=== PATIENT | female | born 1995 | race Caucasian/White ===

== ENCOUNTER → 2016-04-10 | Outpatient (REF) | payer BC, MEDICAID ==
[~2016-04-10] MED LIST: IBUP60TA PO; PERC5TAB6 PO; PERCOCET PO; PRENTAB13 PO; VITAPRTA PO
== END ==
LOC: M LAB REF 17:06
PROVIDERS: ATTEND Advanced Practice Midwife
DX: Z34.82 Encounter for supervision of other normal pregnancy, second trimester (principal)

== ENCOUNTER → 2016-05-08 | Outpatient (CLI) | payer BC ==
--- NOTE | 2016-05-09 04:20 | REP ---
Clinical: Anatomical evaluation. Comparison: None . Findings: Examination demonstrates a single live intrauterine in cephalic presentation. motion is identified by technologist. Placenta is noted anteriorly and grade zero without evidence for placenta previa or abruption. Amniotic fluid volume is normal. Cervix measures 3.4 cm in length and appears closed. No evidence for nuchal cord. Gestational age by LMP 19 weeks 5 days with TANIYA 09/27/2016 . Gestational age by current measurements 19 weeks 3 days with TANIYA 09/29/2016 . FHR equals 141 beats per minute. BPD 4.6 cm 19 weeks 5 days HC 16.7 cm 19 weeks 3 days AC 13.6 cm 19 weeks 0 days FL 3.2 cm 19 weeks 6 days HL 3.0 cm 19 week 6 days HC/AC ratio 1.23 Estimated weight 292 grams ( 37th percentile). Anatomical assessment demonstrates normal structures including cranium, choroid plexus, cavum, cerebellum/posterior fossa, facial profile, lungs, diaphragm, stomach, cord insertion, bladder, and extremities. Limited evaluation of the facial features, heart/ventricular outflow tracts, three-vessel cord, kidneys, and spine noted. Impression: Single live intrauterine demonstrating appropriate interval growth. Anatomical limitations as described above. No gross abnormality identified. Signed by Steven Salinas MD 05/09/2016 04:12 A
== END ==
LOC: M SMT 14:48
PROVIDERS: ATTEND Advanced Practice Midwife
DX: Z34.82 Encounter for supervision of other normal pregnancy, second trimester (principal)

== ENCOUNTER → 2016-07-31 | Outpatient (CLI) | payer BC, MEDICAID ==
--- NOTE | 2016-08-01 06:01 | REP ---
Clinical: Anatomical evaluation. Comparison: 05/08/2016 . Findings: Examination demonstrates a single live intrauterine in breech presentation. motion is identified by technologist. Placenta is noted anteriorly and grade zero without evidence for placenta previa or abruption. Amniotic fluid volume is normal. Cervix measures 5.6 cm in length and appears closed. No evidence for nuchal cord. Gestational age by LMP 31 weeks 5 days with TANIYA 09/27/1968 . Gestational age by current measurements 31 weeks 3 days with TANIYA 09/29/2016 . FHR equals 144 beats per minute. Amniotic fluid index equals 8.5 cm (lower limits of normal). Estimated weight 1720 grams ( 33rd percentile). Anatomical assessment again demonstrates limited evaluation of the facial features, heart/ventricular outflow tracts, and spine. Mild right renal pelviectasis noted. Impression: Single live intrauterine in breech presentation demonstrating appropriate interval growth. Continued limited evaluation of the facial features, heart/ atrial outflow tracts, and spine noted along with mild right renal pelviectasis. Signed by Steven Salinas MD 08/01/2016 05:53 A
== END ==
LOC: M SMT 14:35
PROVIDERS: ATTEND Advanced Practice Midwife
DX: Z34.82 Encounter for supervision of other normal pregnancy, second trimester (principal)

== ENCOUNTER → 2016-08-08 | Outpatient (CLI) | payer BC, MEDICAID | LOC: M LAB 09:54 | PROVIDERS: ATTEND Advanced Practice Midwife | DX: Z34.82 Encounter for supervision of other normal pregnancy, second trimester (principal); Z53.9 Procedure and treatment not carried out, unspecified reason ==

== ENCOUNTER 2016-08-13 14:25 | Outpatient (CLI) | payer BC, MEDICAID ==
[~2016-08-13] VITALS: Ht 162.6 cm; Wt 111.0 kg
[2016-08-13 14:36] VITALS: BP 132/74
[2016-08-13 16:08] VITALS: BP 118/56
[2016-08-13 17:13] VITALS: BP 131/66
[2016-08-13] MEDS ORDERED: BETAMETHASONE SOLUSPAN 6MG/ML INJ 5ML (J0702) IM SCH (19:00)
--- NOTE | 2016-08-13 23:16 | HPE ---
DATE OF ADMISSION: 08/13/2016 A 21-year-old, 2, para 1 female at 33-4/7 weeks gestation by last menstrual period (LMP), consistent with an 8-week ultrasound with an estimated date of confinement (EDC) of 09/27/2016, presents from the office after noting multiple variable decelerations on non-stress testing. The indication for non-stress testing is chronic hypertension. COURSE: The patient initiated care at 15 weeks gestation on 04/10/2016. Her blood pressure at that visit was 146/78, weight was 229 pounds. She did not require antihypertensive treatment up until this point of her , even though she had mildly elevated blood pressures. OBSTETRICAL HISTORY: August of 2015, 34 week section for subtle abruption and pre-eclampsia, 3-pound 14-ounce male infant. MEDICAL HISTORY: Hypertension. MEDICATIONS: No medications. SURGICAL HISTORY: section ALLERGIES: LATEX. SOCIAL HISTORY: The father of the baby is involved. The patient denies cigarettes, alcohol, or drug use during . She does smoke when she is not . FAMILY HISTORY: Noncontributory. PHYSICAL EXAMINATION: Blood pressure 124/78, pulse 80. She is in no apparent distress. Head and Neck Exam: Normal. Lungs: Clear. Heart: Regular rate and rhythm. Abdomen: Nontender and gravid. Heart Tones: Category 1. Contractions: None. Sterile Vaginal Exam: Cervix appears closed. There is no obvious fluid leaking. Fern negative. Nitrazine negative. Pooling negative. Extremities: Nontender. Ultrasound revealed adequate growth; however, amniotic fluid index is 4.7 cm. S/D ratio of the umbilical cord is normal. ASSESSMENT: A 21-year-old, 2, para 1 female at 33-4/7 weeks gestation with chronic hypertension and possible oligohydramnios. PLAN: There is no evidence of rupture of membranes at this point in time. Plan to treat with steroids for two doses to enhance lung maturity. The patient will have a repeat amniotic fluid index this week. She will be encouraged to rest and drink plenty of fluids.
--- NOTE | 2016-08-14 06:45 | REP ---
LIMITED OB ULTRASOUND WITH BIOPHYSICAL PROFILE OB ULTRASOUND: 08/13/2016. Clinical history: , hypertension, 35 weeks. Based on initial ultrasound, she would be 33 weeks 2 days. Findings: There is a single intrauterine gestation with fetus in vertex position. Cervix is 3.3 cm long and closed. There is an anterior left-sided placenta and grade 1 maturation without previa or abruption. Cervical cord is draped over the neck not definitely wrapped around at this time. Mid cord umbilical artery Doppler shows an S/D ratio of 2.44 with normal forward diastolic flow. Resistive index of 0.59. The amniotic fluid index is subjectively low visually, index measurement 4.7 with a normal range 8.2 - 24.7. Only two pockets are seen at 3 cm and 1.7 cm, but enough for 2 points in the biophysical profile with a pocket over 2 cm in size. biometry. BPD 8.4 cm 34 weeks HC 31.5 cm 35 weeks 2 days HC 29 cm 33 weeks FL 6.2 cm 32 weeks 2 days HL 5.9 cm 34 weeks This gives average ultrasound age 33 weeks 5 days and EDC 09/26/2016. Estimated weight 2119 grams or 4 pounds 10 ounces. This is 36th percentile for dating based on LMP. Measurement ratios are all in normal range. Anatomy screen was neither requested or performed. There is a normal-appearing choroid plexus, diaphragm, left-sided stomach bubble, three-vessel cord. kidneys and bladder are seen with some minor pelviectasis on the left but this is a normal diameter. Impression: 1. Single intrauterine gestation in vertex presentation with closed 3.3 cm long cervix, anterior left lateral grade 1 placenta without previa or abruption and normal cord Doppler. 2. Mild oligohydramnios visually and by index measurement with the largest fluid pocket 3 cm. 3. Size and dates show normal interval growth. See details above. 4. Heart rate 136 and regular. 5. Biophysical profile score 8/8. Two points each for breathing, movement, tone and AFV. Signed by Saurabh Freitas MD 08/14/2016 05:11 P
== END 2016-08-13 18:32 | disposition home or self-care (01) ==
LOC: M LDO 14:25
PROVIDERS: ATTEND Specialist
DX: O99.89 Other specified diseases and conditions complicating pregnancy, childbirth and the puerperium (principal); O13.3 Gestational [pregnancy-induced] hypertension without significant proteinuria, third trimester; Z3A.33 33 weeks gestation of pregnancy; Z91.040 Latex allergy status; Z87.51 Personal history of pre-term labor
CPT/HCPCS: 59025; 76816; 76819; 76820; 96372; J0702

== ENCOUNTER 2016-08-14 17:58 | Outpatient (CLI) | payer BC, MEDICAID ==
[2016-08-14] MEDS ORDERED: BETAMETHASONE SOLUSPAN 6MG/ML INJ 5ML (J0702) IM ONE (18:30)
== END 2016-08-14 18:54 | disposition home or self-care (01) ==
LOC: M LDO 17:58
PROVIDERS: ATTEND Advanced Practice Midwife
DX: Z34.83 Encounter for supervision of other normal pregnancy, third trimester (principal); Z3A.33 33 weeks gestation of pregnancy; Z91.040 Latex allergy status
CPT/HCPCS: 59025; 96372; J0702

== ENCOUNTER → 2016-08-27 | Outpatient (CLI) | payer BC, MEDICAID ==
--- NOTE | 2016-08-27 13:43 | REP ---
Clinical: well-being and biophysical profile. Comparison: 08/13/2016 . Findings: Examination demonstrates a single live intrauterine in cephalic presentation. motion is identified by technologist. Placenta is noted anteriorly and grade II without evidence for placenta previa or abruption. Amniotic fluid volume is normal. Cervix measures 3.7 cm in length and appears closed. Nuchal cord is identified. Gestational age by LMP 35 weeks 4 days with TANIYA 09/27/2016 . Gestational age by current measurements 35 weeks 5 days with TANIYA 09/26/2016 . FHR equals 139 beats per minute. Biophysical profile score equals 8/8. Amniotic fluid index equals 17.2 cm (7.8 - 24.9). Umbilical cord SD ratio equals 2.34 (2.00 - 3.00). Estimated weight 2717 grams ( 49th percentile). Impression: Single live advanced gestation in cephalic presentation demonstrating appropriate interval growth. Estimated weight normal. Biophysical profile score equals 8/8. Amniotic fluid index normal. Signed by Steven Salinas MD 08/27/2016 01:34 P
== END ==
LOC: M RAD 12:58
PROVIDERS: ATTEND Advanced Practice Midwife
DX: O10.013 Pre-existing essential hypertension complicating pregnancy, third trimester (principal)

== ENCOUNTER → 2016-09-03 | Outpatient (REF) | payer BC, MEDICAID ==
[~2016-09-03] MED LIST changes: +ASPI1TAB PO; +COLA100C3 PO; +IBUP600T26 PO; +OXYC1TAB23 PO; +PREN27TA3 PO; +ZOFR4TAB3 PO
== END ==
LOC: M LAB REF 17:04
PROVIDERS: ATTEND Obstetrics & Gynecology
DX: Z34.83 Encounter for supervision of other normal pregnancy, third trimester (principal)

== ENCOUNTER 2016-09-06 06:38 | Inpatient (IN) | payer BC, MEDICAID ==
[2016-09-06] VITALS (8 sets, daily range): BP systolic 120–147; BP diastolic 61–88
[~2016-09-06] VITALS: Ht 152.4 cm; Wt 112.0 kg
[~2016-09-06 06:38] MED LIST changes: -COLA100C3 PO; -IBUP600T26 PO; -OXYC1TAB23 PO; -ZOFR4TAB3 PO
[2016-09-06] MEDS ORDERED: BICITRA 30ML SOLN UDC As Ordered ONE (09:51)
[2016-09-06] MEDS ORDERED: MORPHINE PRES-FREE INJ 10 MG/10 ML VIAL (J2274) As Ordered ONE (09:53)
[2016-09-06] MEDS ORDERED: OXYTOCIN INJ 10 UNITS/ML VIAL (J2590) As Ordered ONE (09:53)
[2016-09-06] MEDS ORDERED: LR 1,000 ML IV SCH ×2 (10:00→11:00)
[2016-09-06 10:01] LABS: MEAN CORPUSCULAR HEMOGLOBIN 32.4 pg (27.0-33.0); MEAN CORPUSCULAR HGB CONC 34.8 g/dl (32.0-36.5); MEAN CORPUSCULAR VOLUME 93.3 fl (80.0-96.0); RED CELL DISTRIBUTION WIDTH 13.3 % (11.5-14.5); WHITE BLOOD COUNT 10.4 K/mm3 (4.0-10.0)
[2016-09-06] MEDS ORDERED: ePHEDrine SULFATE 25 MG/5 ML(5MG/ML) SYRINGE As Ordered ONE (11:12)
[2016-09-06] MEDS ORDERED: NALBUPHINE HCL 10 MG/ML AMP (J2300) IV PRN ×2 (11:25→12:45)
[2016-09-06] MEDS ORDERED: NALOXONE INJ 0.4 MG/1 ML VIAL (J2310) IV PRN ×2 (11:25)
[2016-09-06] MEDS ORDERED: METOCLOPRAMIDE INJ 10MG/2ML VIAL (J2765) IV PRN (11:25)
[2016-09-06] MEDS ORDERED: ONDANSETRON 4MG/2ML VIAL (J2405) IV PRN ×3 (11:25→12:45)
[2016-09-06] MEDS ORDERED: OXYTOCIN DRIP 30 UNITS in APPROPRIATE DILUENT 1 EA IV SCH (12:22)
[2016-09-06] MEDS ORDERED: MEASLES,MUMPS,RUBELLA VACCINE INJ (MMR-II) (90707) SC SCH (12:30)
[2016-09-06] MEDS ORDERED: PERCOCET 5MG/325MG TAB PO PRN ×2 (12:30)
[2016-09-06] MEDS ORDERED: PROMETHAZINE 25 MG TAB PO PRN (12:30)
[2016-09-06] MEDS ORDERED: KETOROLAC 30 MG/ML VIAL (J1885) IV PRN (12:45)
[2016-09-06] MEDS ORDERED: MEPERIDINE INJ 25 MG/ML VIAL (J2175) IV PRN (12:45)
[2016-09-06] MEDS ORDERED: fentaNYL 100 MCG/2 ML INJECTION (J3010) IV PRN (12:45)
[2016-09-06] MEDS ORDERED: KETOROLAC 30 MG/ML VIAL (J1885) IV SCH (13:00)
[2016-09-06] MEDS: LR 1,000 ML IV SCH ×2 (14:54→22:37)
[2016-09-06] MEDS: KETOROLAC 30 MG/ML VIAL (J1885) IV SCH ×2 (17:51→22:38)
[2016-09-06] MEDS: DOCUSATE SODIUM 100 MG CAP PO SCH (22:04)
[2016-09-07 02:06] VITALS: BP 131/72
[2016-09-07] MEDS: LR 1,000 ML IV SCH (04:22)
[2016-09-07] MEDS: KETOROLAC 30 MG/ML VIAL (J1885) IV SCH ×2 (04:49→10:44)
[2016-09-07 05:37] VITALS: BP 132/67
[2016-09-07 06:21] LABS: MEAN CORPUSCULAR HEMOGLOBIN 32.2 pg (27.0-33.0); MEAN CORPUSCULAR HGB CONC 34.3 g/dl (32.0-36.5); RED CELL DISTRIBUTION WIDTH 13.7 % (11.5-14.5); WHITE BLOOD COUNT 10.4 K/mm3 (4.0-10.0)
[2016-09-07] MEDS: PRENATAL VITAMIN TAB PO SCH (08:49)
[2016-09-07] MEDS: DOCUSATE SODIUM 100 MG CAP PO SCH ×2 (08:49→22:34)
[2016-09-07 10:02] VITALS: BP 133/63
[2016-09-07 14:00] VITALS: BP 135/69
[2016-09-07] MEDS ORDERED: IBUPROFEN 800 MG TAB PO SCH (15:00)
[2016-09-07 18:08] VITALS: BP 133/63
[2016-09-07] MEDS: IBUPROFEN 800 MG TAB PO SCH (18:55)
[2016-09-07 21:57] VITALS: BP 129/67
[2016-09-08 05:46] VITALS: BP 131/74
[2016-09-08] MEDS: IBUPROFEN 800 MG TAB PO SCH (05:48)
[2016-09-08] MEDS ORDERED: OXYC1TAB23 PO (07:01)
[2016-09-08] MEDS ORDERED: IBUP600T26 PO (07:02)
[2016-09-08] MEDS ORDERED: COLA100C3 PO (07:03)
[2016-09-08] MEDS ORDERED: ZOFR4TAB3 PO (07:03)
[2016-09-08] MEDS: PRENATAL VITAMIN TAB PO SCH (07:57)
[2016-09-08] MEDS: DOCUSATE SODIUM 100 MG CAP PO SCH (07:57)
== END 2016-09-08 11:00 | disposition home or self-care (01) | DRG 540 ==
LOC: M LDI 06:38 → M OBS 14:08
PROVIDERS: ADMIT Obstetrics & Gynecology; ATTEND Obstetrics & Gynecology
PROC: 10D00Z1 Extraction of Products of Conception, Low, Open Approach (ICD-10-PCS; principal; 2016-09-06 09:30)
DX: O34.211 Maternal care for low transverse scar from previous cesarean delivery (principal); Z37.0 Single live birth; Z3A.37 37 weeks gestation of pregnancy; Z91.19 Patient's noncompliance with other medical treatment and regimen; O10.92 Unspecified pre-existing hypertension complicating childbirth; Z87.59 Personal history of other complications of pregnancy, childbirth and the puerperium

== ENCOUNTER 2017-09-09 13:20 | Emergency (ER) | payer OTHER, BC, MEDICAID ==
[2017-09-09 15:19] LABS: KETONE, URINE AUTO RFX NEGATIVE (NEGATIVE); MUCUS, URINE RFX SMALL (NEGATIVE); NITRITE, URINE AUTO RFX NEGATIVE (NEGATIVE); RBC, URINE AUTO RFX 3 /HPF (0-3); SPECIFIC GRAVITY UR AUTO RFX 1.011 (1.002-1.035); SQUAM EPITHELIAL CELL UR AURFX 3 /HPF (0-6)
[2017-09-09 15:21] LABS: LEUKOCYTE ESTERASE UR AUTO RFX TRACE (NEGATIVE); WBC, URINE AUTO RFX 13 /HPF (0-3)
[2017-09-09 16:06] LABS: CONTROL LINE HCG INT CTR LINE PRESENT; HCG, SERUM QUALITATIVE POSITIVE (NEGATIVE)
== END 2017-09-09 16:38 | disposition home or self-care (01) ==
LOC: M ED 13:20
DX: O23.41 Unspecified infection of urinary tract in pregnancy, first trimester (principal); O99.211 Obesity complicating pregnancy, first trimester; O99.331 Smoking (tobacco) complicating pregnancy, first trimester; F17.210 Nicotine dependence, cigarettes, uncomplicated; O99.341 Other mental disorders complicating pregnancy, first trimester; F41.9 Anxiety disorder, unspecified; Z3A.00 Weeks of gestation of pregnancy not specified; Z91.040 Latex allergy status
CPT/HCPCS: 84703

== ENCOUNTER → 2017-11-19 | Outpatient (CLI) | payer BC, OTHER ==
[2017-11-19 10:57] LABS: BASO # 0.1 10^3/uL (0.0-0.2); BASO % 0.6 % (0.0-1.0); EOS # 0.2 10^3/uL (0.0-0.50); EOS % 1.3 % (0.0-3.0); HEMATOCRIT 38.9 % (36.0-47.0); HEMOGLOBIN 13.7 g/dl (12.0-15.5); IMMATURE GRANULOCYTE % 1.5 % (0-3.0); LYMPH % 20.6 % (24.0-44.0); MEAN CORPUSCULAR HGB CONC 35.2 g/dl (32.0-36.5); MEAN CORPUSCULAR VOLUME 93.7 fl (80.0-96.0); MONO # 0.6 10^3/uL (0.0-0.8); MONO % 4.3 % (0.0-5.0); NEUTROPHILS # 10.3 10^3/uL (1.8-7.7); NEUTROPHILS % 71.7 % (36.0-66.0); PLATELET COUNT, AUTOMATED 226 10^3/uL (150-450); RED BLOOD COUNT 4.15 10^6/uL (4.00-5.40); RED CELL DISTRIBUTION WIDTH 12.8 % (11.5-14.5); WHITE BLOOD COUNT 14.4 10^3/uL (4.0-10.0)
[2017-11-19 11:50] LABS: RUBELLA IgG QUALITATIVE IMMUNE (IMMUNE)
[2017-11-19 11:51] LABS: HBsAg Prenatal NEGATIVE (NEGATIVE)
[2017-11-19 12:19] LABS: HEPATITIS C VIRUS ABY INDEX 0.1 INDEX (<0.8)
[2017-11-19 12:19] LABS: HIV 1&2 SCREEN CENTAUR NEGATIVE (NEGATIVE)
[2017-11-19 13:20] LABS: CHLAMYDIA DNA AMPLIFICATION NEGATIVE (NEGATIVE); GC DNA AMPLIFICATION NEGATIVE (NEGATIVE)
[2017-11-19 13:35] LABS: ALT/SGPT 15 U/L (12-78); AST/SGOT 9 U/L (7-37); BILIRUBIN,TOTAL 0.3 MG/DL (0.2-1.0); CREATININE FOR GFR 0.66 MG/DL (0.55-1.30); GLOMERULAR FILTRATION RATE > 60.0 (>60); LDH LACTATE DEHYDROGENASE 141 U/L (84-246); URIC ACID 4.2 MG/DL (2.6-6.0)
== END ==
LOC: M LAB 10:37
DX: Z36.89 Encounter for other specified antenatal screening (principal); Z3A.00 Weeks of gestation of pregnancy not specified
CPT/HCPCS: 84460

== ENCOUNTER → 2017-12-01 | Outpatient (REF) | payer BC, OTHER | LOC: M LAB REF 13:18 | DX: O34.211 Maternal care for low transverse scar from previous cesarean delivery (principal) | CPT/HCPCS: 87086 ==

== ENCOUNTER 2017-12-03 11:10 | Emergency (ER) | payer OTHER ==
[2017-12-03 12:37] LABS: BASO # 0.1 10^3/uL (0.0-0.2); BASO % 0.6 % (0.0-1.0); EOS # 0.2 10^3/uL (0.0-0.50); EOS % 1.1 % (0.0-3.0); HEMATOCRIT 38.5 % (36.0-47.0); HEMOGLOBIN 13.5 g/dl (12.0-15.5); IMMATURE GRANULOCYTE % 1.4 % (0-3.0); LYMPH # 3.4 10^3/uL (1.5-6.5); LYMPH % 21.8 % (24.0-44.0); MEAN CORPUSCULAR HEMOGLOBIN 33.3 pg (27.0-33.0); MEAN CORPUSCULAR HGB CONC 35.1 g/dl (32.0-36.5); MEAN CORPUSCULAR VOLUME 94.8 fl (80.0-96.0); MONO # 0.6 10^3/uL (0.0-0.8); MONO % 3.7 % (0.0-5.0); NEUTROPHILS % 71.4 % (36.0-66.0); PLATELET COUNT, AUTOMATED 216 10^3/uL (150-450); RED BLOOD COUNT 4.06 10^6/uL (4.00-5.40); RED CELL DISTRIBUTION WIDTH 13.2 % (11.5-14.5); WHITE BLOOD COUNT 15.4 10^3/uL (4.0-10.0)
[2017-12-03 12:44] LABS: KETONE, URINE AUTO RFX NEGATIVE (NEGATIVE); MUCUS, URINE RFX SMALL (NEGATIVE); NITRITE, URINE AUTO RFX NEGATIVE (NEGATIVE); RBC, URINE AUTO RFX 0 /HPF (0-3); SPECIFIC GRAVITY UR AUTO RFX 1.012 (1.002-1.035); SQUAM EPITHELIAL CELL UR AURFX 2 /HPF (0-6); WBC, URINE AUTO RFX 1 /HPF (0-3)
[2017-12-03] MEDS: MORPHINE 2 MG/ML 1ML SYRINGE (J2270) IV (12:46)
[2017-12-03] MEDS: NS 1,000 ML IV (12:46)
[2017-12-03 13:06] LABS: ALBUMIN 3.1 GM/DL (3.2-5.2); ALBUMIN/GLOBULIN RATIO 0.78 (1.00-1.93); ALKALINE PHOSPHATASE 40 U/L (45-117); ALT/SGPT 13 U/L (12-78); ANION GAP 8 MEQ/L (8-16); AST/SGOT 10 U/L (7-37); BILIRUBIN,DIRECT < 0.1 MG/DL (0.0-0.2); BILIRUBIN,TOTAL 0.2 MG/DL (0.2-1.0); BLOOD UREA NITROGEN 4 MG/DL (7-18); CARBON DIOXIDE LEVEL 23 MEQ/L (21-32); CHLORIDE LEVEL 108 MEQ/L (98-107); CREATININE FOR GFR 0.54 MG/DL (0.55-1.30); GLOMERULAR FILTRATION RATE > 60.0 (>60); GLUCOSE, FASTING 77 MG/DL (70-100); HCG, SERUM QUANTITATIVE 7696 MIU/ML; LEUKOCYTE ESTERASE UR AUTO RFX TRACE (NEGATIVE); POTASSIUM SERUM 4.2 MEQ/L (3.5-5.1); SODIUM LEVEL 139 MEQ/L (136-145); TOTAL PROTEIN 7.1 GM/DL (6.4-8.2)
== END 2017-12-03 15:15 | disposition home or self-care (01) ==
LOC: M ED 11:10
DX: O99.612 Diseases of the digestive system complicating pregnancy, second trimester (principal); K52.9 Noninfective gastroenteritis and colitis, unspecified; O10.92 Unspecified pre-existing hypertension complicating childbirth; O99.512 Diseases of the respiratory system complicating pregnancy, second trimester; J45.909 Unspecified asthma, uncomplicated; O99.342 Other mental disorders complicating pregnancy, second trimester; F41.9 Anxiety disorder, unspecified; F32.9 Major depressive disorder, single episode, unspecified; O99.332 Smoking (tobacco) complicating pregnancy, second trimester; F17.210 Nicotine dependence, cigarettes, uncomplicated; Z91.040 Latex allergy status; Z87.59 Personal history of other complications of pregnancy, childbirth and the puerperium
CPT/HCPCS: J2270

== ENCOUNTER → 2017-12-16 | Outpatient (CLI) | payer BC, OTHER | LOC: M RAD 12:34 | DX: Z36.9 Encounter for antenatal screening, unspecified (principal); Z3A.17 17 weeks gestation of pregnancy | CPT/HCPCS: 76816 ==

== ENCOUNTER → 2018-01-02 | Outpatient (CLI) | payer OTHER | LOC: M RAD 17:38 | DX: O34.211 Maternal care for low transverse scar from previous cesarean delivery (principal); Z53.8 Procedure and treatment not carried out for other reasons ==

== ENCOUNTER → 2018-02-13 | Outpatient (CLI) | payer OTHER | LOC: M RAD 15:26 | DX: Z36.2 Encounter for other antenatal screening follow-up (principal); Z3A.26 26 weeks gestation of pregnancy | CPT/HCPCS: 76816 ==

== ENCOUNTER → 2018-04-01 | Outpatient (CLI) | payer OTHER ==
[~2018-04-01] MED LIST changes: +AUGM875T28 PO; +COLA100C5 PO; +IBUP-1022 PO; +OXYC1TAB23 PO; +PERC5TAB12 PO; -PERC5TAB6 PO; -PRENTAB13 PO; +PRENTAB20 PO; +PRENTAB9 PO; +ZOFR4TAB14 PO
--- NOTE | 2018-04-01 12:29 | REP ---
Clinical: well-being . Comparison: 02/13/2018 . Findings: Examination demonstrates a single live intrauterine in cephalic presentation. motion is identified by technologist. Placenta is noted anterior and grade grade 1 without evidence for placenta previa or abruption. Amniotic fluid volume is normal. Cervix measures 3.5 cm in length and appears closed. Nuchal cord cannot be excluded. Gestational age by LMP 33 weeks 3 days with TANIYA 05/17/2018 . Gestational age by current measurements 33 weeks 2 days with TANIYA 05/18/2018 . FHR equals 137 beats per minute. BPD 8.3 cm 33 weeks 3 days HC 30.0 cm at 3 weeks 2 days AC 29.4 cm 33 weeks 2 days FL 6.4 cm 833 weeks 0 days HL 5.7 cm 33 weeks 2 days HC/AC ratio 1.02 Estimated weight 2148 grams ( 42nd percentile). Biophysical profile score 88 Amniotic fluid index: 12.3 cm (8.2 - 24.6) Umbilical cord SD ratio: 2.36 (2.00 - 3.00). Impression: Single live advanced gestation in cephalic presentation demonstrating appropriate interval growth. Biophysical profile score and amniotic fluid volume are normal. No gross abnormalities are identified. Nuchal cord cannot be excluded. Electronically Signed by Steven Salinas MD 04/01/2018 12:21 P
== END ==
LOC: M RAD 11:25
PROVIDERS: ATTEND Advanced Practice Midwife
DX: O10.013 Pre-existing essential hypertension complicating pregnancy, third trimester (principal); Z3A.33 33 weeks gestation of pregnancy

== ENCOUNTER 2018-04-14 12:09 | Outpatient (CLI) | payer OTHER ==
[~2018-04-14] VITALS: Ht 162.6 cm; Wt 110.6 kg
[~2018-04-14 12:09] MED LIST changes: -PRENTAB9 PO
[2018-04-14 12:29] VITALS: BP 132/77
[2018-04-14 13:31] VITALS: BP 136/76
--- NOTE | 2018-04-14 13:33 | REP ---
Obstetric sonography: History: Decreased movement. tachycardia. Findings: Limited obstetric scanning demonstrates a viable single intrauterine gestation in a cephalic lie. Placenta is anterior grade 1 without evidence of previa or abruption. heart rate is recorded at 147 beats per minute. Amniotic fluid is subjectively normal. CHRISTOPHER is normal 14.8 cm. Biophysical profile score is eight out of a possible eight. SD ratio in the umbilical cord artery by Doppler is normal at 2.05. The urinary bladder appears slightly distended at the time of today's scan. Electronically Signed by Robbin Cody MD 04/14/2018 01:24 P
[2018-04-14 14:16] VITALS: BP 128/73
[2018-04-14] MEDS ORDERED: PRENTAB9 PO (14:51)
== END 2018-04-14 14:25 | disposition home or self-care (01) ==
LOC: M LDO 12:09
PROVIDERS: ATTEND Specialist
DX: O36.8130 Decreased fetal movements, third trimester, not applicable or unspecified (principal); Z3A.35 35 weeks gestation of pregnancy

== ENCOUNTER → 2018-04-20 | Outpatient (REF) | payer OTHER ==
[~2018-04-20] MED LIST changes: +IBUP1TAB7 PO; +MAPA500T2 PO; +PRENTAB9 PO; +ZOLO25TA PO
== END ==
LOC: M LAB REF 18:48
PROVIDERS: ATTEND Obstetrics & Gynecology
DX: O10.013 Pre-existing essential hypertension complicating pregnancy, third trimester (principal)

== ENCOUNTER 2018-04-21 10:33 | Outpatient (CLI) | payer OTHER ==
[~2018-04-21] VITALS: Ht 162.6 cm; Wt 110.9 kg
[~2018-04-21 10:33] MED LIST changes: -IBUP1TAB7 PO; -MAPA500T2 PO; -ZOLO25TA PO
[2018-04-21 10:42] VITALS: BP 143/96
[2018-04-21] MEDS ORDERED: MAPA500T2 PO (10:50)
[2018-04-21 13:03] LABS: HEMATOCRIT 36.3 % (36.0-47.0); HEMOGLOBIN 12.4 g/dl (12.0-15.5); MEAN CORPUSCULAR HEMOGLOBIN 32.7 pg (27.0-33.0); MEAN CORPUSCULAR HGB CONC 34.2 g/dl (32.0-36.5); MEAN CORPUSCULAR VOLUME 95.8 fl (80.0-96.0); PLATELET COUNT, AUTOMATED 189 10^3/uL (150-450); RED BLOOD COUNT 3.79 10^6/uL (4.00-5.40); WHITE BLOOD COUNT 16.3 10^3/uL (4.0-10.0)
[2018-04-21 13:16] LABS: INR 1.04; PARTIAL THROMBOPLASTIN TIME 27.1 SECONDS (25.4-37.6); PROTHROMBIN TIME 13.7 SECONDS (12.1-14.4)
--- NOTE | 2018-04-21 15:31 | NUR ---
L&D Triage Note Reason for visit: labor check Subjective 22 year old at 36+2 weeks gestation. EDC:05/17/18. dated by LMP c/w first TM US. Complains of abdominal pain (upper and lower). She is concerned regarding a placental abruption (pt has h/o placental abruption with previous ). Patient has expressed continued anxiety over the past two weeks regarding her risk of recurrent placental abruption. Denies vaginal bleeding or loss of fluid. Reports regular, frequent movement, although decreased. Medical history: obesity/BMI 42 Surgical history: LTCS x 2 Medications: PNV Allergies: Latex SHERIFFS DETECTIVE history: August 2015, 34 weeks LTCS (pre-e,NRFHR, placental abruption). September 2016, 37 weeks RLTCS (CHTN, depression). H/o CT (treated; CT / GC neg during first trim) Social history: +smoking/tobacco use during , Objective Vitals: Mild HTN, normal HR, afebrile. Heart: Regular rate and rhythm. No murmurs, gallops, rubs Lungs: Clear to auscultation bilaterally. No wheezes, crackles, rales or rhonchi Abdomen: Uterine fundus , nontender/distractible and fundal height consistent with gestational age. No guarding or rebound tenderness. Pelvic: deferred Extremities: nonedematous, nontender. External monitoring/NST:Reactive, normal baseline, moderate variability, no decelerations. Tocodynamometer: contractions are not present CBC: 16.3>12.4/36.3<189 Fibrinogen: 499 PT 13.7, INR 1.04, APTT 27.1 KB: 0.001 Assessment/Plan 22 year old at 36+2 weeks gestation. No clinical evidence of placental abruption, active labor or ruptured membranes. Reassuring maternal and status. -Routine labor, movement/kick count, and obstetric emergency precautions reviewed. -Follow-up with appointment as currently scheduled. Mikayla Redding.O., F.A.C.O.G.
== END 2018-04-21 13:50 | disposition home or self-care (01) ==
LOC: M LDO 10:33
PROVIDERS: ATTEND Obstetrics & Gynecology
DX: O26.891 Other specified pregnancy related conditions, first trimester (principal); Z3A.36 36 weeks gestation of pregnancy; O99.333 Smoking (tobacco) complicating pregnancy, third trimester; F17.200 Nicotine dependence, unspecified, uncomplicated; O99.213 Obesity complicating pregnancy, third trimester; Z91.040 Latex allergy status; O09.293 Supervision of pregnancy with other poor reproductive or obstetric history, third trimester

== ENCOUNTER 2018-04-23 11:20 | Inpatient (IN) | payer OTHER ==
[2018-04-23] VITALS (7 sets, daily range): BP systolic 117–135; BP diastolic 57–74
[~2018-04-23] VITALS: Ht 162.6 cm; Wt 111.1 kg
[~2018-04-23 11:20] MED LIST changes: +MAPA500T2 PO
[2018-04-23 13:00] LABS: HEMATOCRIT 37.2 % (36.0-47.0); MEAN CORPUSCULAR HEMOGLOBIN 32.6 pg (27.0-33.0); MEAN CORPUSCULAR HGB CONC 34.9 g/dl (32.0-36.5); MEAN CORPUSCULAR VOLUME 93.2 fl (80.0-96.0); PLATELET COUNT, AUTOMATED 225 10^3/uL (150-450); RED BLOOD COUNT 3.99 10^6/uL (4.00-5.40); WHITE BLOOD COUNT 15.1 10^3/uL (4.0-10.0)
[2018-04-23] MEDS ORDERED: BICITRA 30ML SOLN UDC PO ONE (13:30)
[2018-04-23] MEDS ORDERED: LACTATED RINGER'S 1000 ML IV ONE (13:30)
[2018-04-23] MEDS: LR 1,000 ML IV SCH ×2 (13:55→15:07)
[2018-04-23] MEDS ORDERED: OXYTOCIN INJ 10 UNITS/ML VIAL (J2590) As Ordered ONE ×2 (15:51→16:06)
[2018-04-23] MEDS ORDERED: PHENYLephrine HCL 500 MCG/5 ML (100MCG/ML) SYRINGE (J2370) As Ordered ONE (15:51)
[2018-04-23] MEDS ORDERED: MORPHINE PRES-FREE INJ 10 MG/10 ML VIAL (J2274) As Ordered ONE (15:51)
[2018-04-23] MEDS ORDERED: LR 1,000 ML IV SCH ×2 (16:42→17:30)
[2018-04-23] MEDS ORDERED: OXYTOCIN DRIP 30 UNITS in APPROPRIATE DILUENT 1 EA IV SCH (16:42)
[2018-04-23] MEDS ORDERED: MOM 30ML SUSPENSION UDC PO PRN (16:45)
[2018-04-23] MEDS ORDERED: ONDANSETRON 4MG/2ML VIAL (J2405) IV PRN ×2 (16:45→17:30)
[2018-04-23] MEDS ORDERED: MEASLES,MUMPS,RUBELLA VACCINE INJ (MMR-II) (90707) SC SCH (16:45)
[2018-04-23] MEDS ORDERED: RHOGAM 300 MCG (1500 IU) INJ (J2790) IM SCH (16:45)
[2018-04-23] MEDS ORDERED: PERCOCET PO (16:53)
[2018-04-23 16:54] LABS: ALT/SGPT 10 U/L (12-78); BILIRUBIN,TOTAL 0.3 MG/DL (0.2-1.0); CREATININE FOR GFR 0.53 MG/DL (0.55-1.30); GLOMERULAR FILTRATION RATE > 60.0 (>60); LDH LACTATE DEHYDROGENASE 155 U/L (84-246); URIC ACID 3.9 MG/DL (2.6-6.0)
[2018-04-23] MEDS ORDERED: IBUP1TAB7 PO (16:54)
[2018-04-23] MEDS ORDERED: OXYTOCIN 30 UNITS IN 0.9% NaCl 500ML IV BAG (J2590) As Ordered ONE (17:07)
[2018-04-23] MEDS ORDERED: KETOROLAC 30 MG/ML VIAL (J1885) As Ordered ONE (17:15)
[2018-04-23] MEDS: KETOROLAC 30 MG/ML VIAL (J1885) IV SCH ×2 (17:18→23:19)
[2018-04-23] MEDS ORDERED: KETOROLAC 30 MG/ML VIAL (J1885) IV PRN (17:30)
[2018-04-23] MEDS ORDERED: fentaNYL 100 MCG/2 ML INJECTION (J3010) IV PRN (17:30)
[2018-04-23] MEDS ORDERED: PERCOCET 5MG/325MG TAB PO PRN (17:30)
[2018-04-23] MEDS ORDERED: NALBUPHINE HCL 10 MG/ML AMP (J2300) IV PRN (17:30)
[2018-04-23] MEDS ORDERED: METOCLOPRAMIDE INJ 10MG/2ML VIAL (J2765) IV PRN (17:30)
[2018-04-23] MEDS ORDERED: ONDANSETRON 4MG/2ML VIAL (J2405) As Ordered ONE (18:12)
[2018-04-23] MEDS: PERCOCET 5MG/325MG TAB PO PRN (21:18)
[2018-04-23] MEDS: DOCUSATE SODIUM 100 MG CAP PO SCH (23:20)
[2018-04-24 02:00] VITALS: BP 111/56
[2018-04-24] MEDS: KETOROLAC 30 MG/ML VIAL (J1885) IV SCH ×2 (05:29→12:31)
[2018-04-24 06:00] VITALS: BP 106/51
[2018-04-24 07:28] LABS: MEAN CORPUSCULAR HEMOGLOBIN 32.3 pg (27.0-33.0); MEAN CORPUSCULAR HGB CONC 34.1 g/dl (32.0-36.5); PLATELET COUNT, AUTOMATED 172 10^3/uL (150-450); RED BLOOD COUNT 3.37 10^6/uL (4.00-5.40); WHITE BLOOD COUNT 12.7 10^3/uL (4.0-10.0)
--- NOTE | 2018-04-24 07:33 | NUR ---
POD#1 S: Doing well w/o complaints. Decreasing lochia, pain controlled, + voids and ambulation. O: vss, AF Gen: well appearing abd: soft, nttp with ff@[id number] ext: neg calf tenderness incision: Dressed A/P: POD#1 s/p RLTCS-currently stable Superimposed Preeclampsia - stable -continue routine /postoperative care -d/c plans for tomorr or Friday Flakita Keenan MD
[2018-04-24 07:38] LABS: HEMOGLOBIN 10.9 g/dl (12.0-15.5)
--- NOTE | 2018-04-24 08:30 | RO ---
DATE OF PROCEDURE: 04/23/2018 PREPROCEDURE DIAGNOSES: 1. 36 weeks 4 days gestation. 2. Chronic hypertension with superimposed pre-eclampsia. 3. History of prior low transverse section times two with satisfied parity. 4. Oligohydramnios. POSTPROCEDURE DIAGNOSES: 1. 36 weeks 4 days gestation. 2. Chronic hypertension with superimposed pre-eclampsia. 3. History of prior low transverse section times two with satisfied parity. 4. Oligohydramnios. PROCEDURE: Repeat low transverse section with Yelm bilateral tubal ligation. SURGEON: Don Glass DO DELICATESSEN SLICER: Flakita Keenan MD (essential role in surgical site exposure and assistance with delivery of the baby through the hysterotomy). ANESTHESIA: Spinal with Duramorph. ESTIMATED BLOOD LOSS: 500 mL. FLUIDS REPLACED: 3000 mL lactated Ringer's. URINE OUTPUT: 25 mL via Latif. INTRAOPERATIVE FINDINGS: Normal uterus, normal bilateral adnexa and ovaries. weight of baby was 2590 grams, 5 pounds 11 ounces. 9 and 9. PREOPERATIVE ANTIBIOTICS: Ancef 2 grams IV times one. COMPLICATIONS: None. INDICATION: The patient is 22-year-old G3, now P3. She was diagnosed with chronic hypertension with superimposed preeclampsia. She has also had symptoms of preeclampsia with persistent headache and visual changes. She has a history of placental abruption and preeclampsia in previous pregnancies. We have been trying to achieve at least 37 weeks gestation but given her symptoms, history and clinical presentation today (in addition to the ultrasound finding of oligohydramnios with an CHRISTOPHER of 3-4 cm, the decision was made to proceed with repeat low transverse section today. She also expressed 100% satisfied parity during her course. It has always been her plan that she proceed with tubal sterilization at the time of delivery. PROCEDURE: The patient was counseled and consented on risks, benefits, indications, and alternatives of procedure. Informed consent was obtained. She was taken to operating room with an IV running and placed on the operating table. Spinal anesthesia was administered without any difficulty. She was placed in dorsal supine position with a leftward tilt. She was prepared and draped in normal sterile fashion. Time-out was performed per protocol. Pfannenstiel skin incision was made with the 11 blade and the 11 blade was used to dissect down to the level the rectus sheath fascia. The rectus sheath fascia was incised in midline and this was extended bilaterally with Lemus scissors. The superior aspect of the fascial incision was grasped with Ronit clamps and tented upward. The rectus muscle bellies were dissected off sharply and bluntly. In similar fashion, the inferior aspect of the fascial incision was grasped with Ronit clamps and elevated and the rectus muscle bellies were dissected off bluntly and sharply. The rectus muscle bellies were identified, the midline was identified. The peritoneum was identified and grasped with hemostats and elevated. The peritoneum was cut with the Metzenbaum scissors. Entry into the intraperitoneal cavity was achieved. This peritoneal opening was extended with manual stretch resulting in good visualization of the lower uterine segment and the bladder. The bladder blade was positioned. The vesicouterine peritoneum was dissected off with Metzenbaum scissors to create a bladder flap. Bladder blade was repositioned. A low-transverse uterine incision was made. Clear amniotic fluid was noted but minimal to moderate in amount. The head was delivered through the hysterotomy without any difficulty. The remainder of the body delivered with ease. The cord was doubly clamped and cut. The infant was handed off to awaiting care. The placenta was removed manually. The uterus was exteriorized and cleared of all clot and debris. The hysterotomy was closed with #0 Vicryl in running locked fashion. This was reinforced with second imbricating layer with #0 Vicryl. Excellent hemostasis with hysterotomy was noted. Attention was then turned to the left fallopian tube. The left fallopian tube was grasped and elevated with a Ankita. The underlying mesosalpinx was cauterized and cut with the Bovie, thus creating a window in the broad ligament. Using plain Gut suture, a Yelm tubal ligation was performed and the intervening tubal segment was excised with Metzenbaum scissors. The remaining fallopian tube segment/raw edges were cauterized with Bovie. The same exact procedure was performed on the contralateral fallopian tube. Both fallopian tube segments were sent to pathology for permanent section. Excellent hemostasis of both fallopian tubes/adnexa was noted. The posterior cul-de-sac was irrigated and cleared of all clot and debris. The uterus was placed back into the abdomen. The hysterotomy was reinspected and noted be hemostatic. The paracolic gutters were cleared of all clot and debris. The pelvis was reinspected and noted be completely hemostatic. Peritoneum was closed with #3-0 Vicryl in a running fashion. The rectus muscles were reapproximated with #3-0 Vicryl with a series of three interrupted sutures. The rectus muscle bellies were noted to be hemostatic. Fascia was closed with #0 Vicryl in running fashion. The subcutaneous tissue was then copiously irrigated. At this point, sponge, lap, needle and sponge counts were correct. The subcutaneous layer was closed with #3-0 Vicryl to reapproximate the space. The skin was then closed with #4-0 Monocryl in subcuticular fashion. Sponge, lap, needle, instrument counts were again correct. The Optifoam dressing was placed over the incision. The patient tolerated the entire procedure well. She was transferred to the PACU in good and stable condition. ALEXA
[2018-04-24] MEDS: PRENATAL VITAMINS CHEWABLE TABLET PO SCH (09:15)
[2018-04-24] MEDS: DOCUSATE SODIUM 100 MG CAP PO SCH ×2 (09:15→19:57)
[2018-04-24] MEDS: PERCOCET 5MG/325MG TAB PO PRN ×2 (09:15→16:49)
[2018-04-24 10:00] VITALS: BP 130/58
[2018-04-24 14:00] VITALS: BP 129/59
[2018-04-24 18:00] VITALS: BP 127/70
[2018-04-24] MEDS: IBUPROFEN 800 MG TAB PO SCH (19:57)
[2018-04-24 22:34] VITALS: BP 124/55
[2018-04-25 02:04] VITALS: BP 129/74
[2018-04-25] MEDS: IBUPROFEN 800 MG TAB PO SCH ×2 (03:03→13:14)
[2018-04-25] MEDS: PERCOCET 5MG/325MG TAB PO PRN (05:42)
[2018-04-25 05:57] VITALS: BP 133/73
[2018-04-25] MEDS ORDERED: ZOLO25TA PO (07:37)
--- NOTE | 2018-04-25 07:48 | DS.PDOC ---
Discharge Summary General Date of Admission Apr 23, 2018 at 11:20 Date of Discharge 04/25/18 Discharge Summary PROCEDURES PERFORMED DURING STAY: Repeat with bilateral tubal ligation. ADMITTING DIAGNOSES: 1. Chronic hypertension with superimposed preeclampsia 2. Previous section 3. Satisfied pariety DISCHARGE DIAGNOSES: 1. Chronic hypertension with preeclampsia 2. Repeat section with BTL COMPLICATIONS/CHIEF COMPLAINT: Csection. HISTORY OF PRESENT ILLNESS: 22yo admitted 04/23/18 for repeat section and BTL. Admitted @ 36w5d with increased s/s superimposed preeclampsia. HOSPITAL COURSE: OOB independently. Voiding, passing flatus. Adequate pain management DISCHARGE MEDICATIONS: Please see below. ALLERGIES: Please see below. PHYSICAL EXAMINATION ON DISCHARGE: VITAL SIGNS: Please see below. GENERAL: NAD NECK: Supple CARDIOVASCULAR EXAMINATION: HRR, normotensive RESPIRATORY EXAMINATION: Clear, respirations easy ABDOMINAL EXAMINATION: Fundus firm, dressing intact with old drainage EXTREMITIES: Equal strength and motion SKIN: Intact NEUROLOGICAL EXAMINATION: Intact PSYCHIATRIC EXAMINATION: Appropriate. Requesting antidepressant due to history of depression LABORATORY DATA: Please see below. PROGNOSIS: Good ACTIVITY: As tolerated. DIET: As tolerated DISCHARGE PLAN: Discharge today. DISPOSITION: Home. DISCHARGE INSTRUCTIONS: 1. Continue vitamins, tylenol, ibuprofen percocet as needed for pain. Start zoloft 25mg daily. 2. Routine discharge instructions DISCHARGE CONDITION: Stable. Vital Signs/I&Os Vital Signs Date Time Temp Pulse Resp B/P (MAP) Pulse Ox O2 Delivery O2 Flow Rate FiO2 04/25/18 06:15 16 Room Air 04/25/18 05:57 97.8 72 133/73 (93) 04/24/18 18:00 95 I&O- Last 24 Hours up to 6 AM 04/25/18 06:00 Intake Total 1000 ml Output Total 400 ml Balance 600 ml Discharge Medications Scheduled Multivitamins/ ( 27-0.8 mg) 1 Tab Tab, 1 TAB PO DAILY, (Reported) Sertraline Hcl (Zoloft) 25 Mg Tab, 1 TAB PO DAILY Scheduled PRN Ibuprofen (Ibuprofen) 800 Mg Tab, 800 MG PO Q8HP PRN for PAIN Oxycodone/Acetaminophen (Percocet 5MG/325MG Tablet) 1 Tab Tab, 1-2 TAB PO Q6HP PRN for PAIN Allergies Coded Allergies: Latex (Verified Allergy, Intermediate, SWELLING, RASH, 08/28/15) Rema Johnson CNM Apr 25, 2018 07:48
[2018-04-25] MEDS ORDERED: SERTRALINE HCL 25 MG TABLET PO SCH (09:00)
[2018-04-25] MEDS: DOCUSATE SODIUM 100 MG CAP PO SCH (09:06)
[2018-04-25] MEDS: PRENATAL VITAMINS CHEWABLE TABLET PO SCH (09:07)
== END 2018-04-25 14:00 | disposition home or self-care (01) | DRG 540 ==
LOC: M LDI 11:20 → M OBS 18:27
PROVIDERS: ADMIT Obstetrics & Gynecology; ATTEND Obstetrics & Gynecology
PROC: 0UB70ZZ Excision of Bilateral Fallopian Tubes, Open Approach (ICD-10-PCS; 2018-04-23)
PROC: 10D00Z1 Extraction of Products of Conception, Low, Open Approach (ICD-10-PCS; principal; 2018-04-23 15:29)
DX: O11.4 Pre-existing hypertension with pre-eclampsia, complicating childbirth (principal); O34.211 Maternal care for low transverse scar from previous cesarean delivery; O41.03X0 Oligohydramnios, third trimester, not applicable or unspecified; Z37.0 Single live birth; Z3A.36 36 weeks gestation of pregnancy; Z30.2 Encounter for sterilization; Z91.040 Latex allergy status

== ENCOUNTER 2018-08-13 21:32 | Emergency (ER) | payer BC, OTHER ==
[~2018-08-13] VITALS: Ht 162.6 cm; Wt 110.9 kg
[~2018-08-13 21:32] MED LIST changes: -ASPI1TAB PO; +ASPI81TA26 PO; +IBUP1TAB7 PO; +IBUP600T42 PO; -IBUP60TA PO; +ZOLO25TA PO
[2018-08-13 22:52] LABS: BASO # 0.1 10^3/uL (0.0-0.2); BASO % 0.7 % (0.0-1.0); EOS # 0.2 10^3/uL (0.0-0.50); EOS % 1.4 % (0.0-3.0); HEMATOCRIT 40.4 % (36.0-47.0); HEMOGLOBIN 14.2 g/dl (12.0-15.5); LYMPH # 3.2 10^3/uL (1.5-6.5); LYMPH % 18.2 % (24.0-44.0); MEAN CORPUSCULAR HEMOGLOBIN 32.5 pg (27.0-33.0); MEAN CORPUSCULAR HGB CONC 35.1 g/dl (32.0-36.5); MEAN CORPUSCULAR VOLUME 92.4 fl (80.0-96.0); MONO % 5.7 % (0.0-5.0); NEUTROPHILS # 12.7 10^3/uL (1.8-7.7); NEUTROPHILS % 73.1 % (36.0-66.0); PLATELET COUNT, AUTOMATED 219 10^3/uL (150-450); RED BLOOD COUNT 4.37 10^6/uL (4.00-5.40); WHITE BLOOD COUNT 17.3 10^3/uL (4.0-10.0)
[2018-08-13 23:18] LABS: ALBUMIN 3.7 GM/DL (3.2-5.2); ALT/SGPT 72 U/L (12-78); BILIRUBIN,DIRECT 0.2 MG/DL (0.0-0.2); BILIRUBIN,TOTAL 0.5 MG/DL (0.2-1.0); BLOOD UREA NITROGEN 11 MG/DL (7-18); CALCIUM LEVEL 9.2 MG/DL (8.5-10.1); CARBON DIOXIDE LEVEL 21 MEQ/L (21-32); CHLORIDE LEVEL 112 MEQ/L (98-107); CREATININE FOR GFR 0.84 MG/DL (0.55-1.30); GLOMERULAR FILTRATION RATE > 60.0 (>60); GLUCOSE, FASTING 101 MG/DL (70-100); LIPASE 96 U/L (73-393); POTASSIUM SERUM 4.2 MEQ/L (3.5-5.1); SODIUM LEVEL 142 MEQ/L (136-145); TOTAL PROTEIN 7.3 GM/DL (6.4-8.2)
--- NOTE | 2018-08-14 00:43 | REPVR ---
EXAM: US Abdomen Limited, Right Upper Quadrant EXAM DATE/TIME: 08/13/2018 11:56 PM CLINICAL HISTORY: 23 years old, female; Abdominal pain; Epigastric; Additional info: Upper abd pain TECHNIQUE: Imaging protocol: Real-time ultrasound of the abdomen with image documentation. Examination was focused on the right upper quadrant. COMPARISON: No relevant prior studies available. FINDINGS: Liver: Liver is unremarkable. Gallbladder: Gallstones at fundus. No sonographic Ewing's sign. Gallbladder wall thickness is normal measuring 2.7 mm. No pericholecystic fluid. Gallstones. No sonographic evidence of cholecystitis. Common bile duct: Common bile duct is normal measuring 5.2 mm. Pancreas: Pancreas is not seen secondary to overlying bowel gas shadow. Right kidney: Right kidney is unremarkable measuring 1.8 cm. Intraperitoneal space: No free fluid. IMPRESSION: Stone in the fundus of the gallbladder. No sonographic evidence of acute cholecystitis. Electronically signed by: Rosalba Cowart On 08/14/2018 00:43:22 AM
[2018-08-14 02:21] VITALS: BP 139/73
[2018-08-14] MEDS ORDERED: ONDA4TAB6 PO (02:37)
== END 2018-08-14 02:48 | disposition home or self-care (01) ==
LOC: M ED 21:32
DX: K80.70 Calculus of gallbladder and bile duct without cholecystitis without obstruction (principal); I10 Essential (primary) hypertension; F33.9 Major depressive disorder, recurrent, unspecified; F41.9 Anxiety disorder, unspecified; F17.210 Nicotine dependence, cigarettes, uncomplicated